=== PATIENT | female | born 1995 | race Caucasian/White ===

== ENCOUNTER 2017-11-20 17:00 | Emergency (ER) | payer SELFPAY ==
[2017-11-20] MEDS ORDERED: Sodium Chloride 0.9% 1,000 ML IV ONE (17:18)
[2017-11-20 17:52] LABS: CHLORIDE,CL 101 mmol/L (101-111); SODIUM,NA 137 mmol/L (135-145)
[2017-11-20] MEDS ORDERED: Ondansetron 4 MG/2 ML SDV IV ONE (18:04)
[2017-11-20] MEDS ORDERED: Iopamidol 612 MG/ML 75 ML Bottle IVPUSH ONE (18:27)
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
[2017-11-20] MEDS ORDERED: Ketorolac 30 MG/ML SDV IVPUSH ONE (19:26)
[2017-11-20 19:45] VITALS: BP 101/53
== END 2017-11-20 19:50 | disposition home or self-care (01) ==
LOC: DL.ED 17:00
DX: K52.9 Noninfective gastroenteritis and colitis, unspecified (principal)
CPT/HCPCS: 36415; 74177; 80053; 80305; 81001; 81025; 85025; 87081; 87430; 87804; 96361; 96374; 96375; 99284; J1885; J2405; J7030; Q9967

== ENCOUNTER 2019-08-08 20:26 | Emergency (ER) | payer BC, OTHER ==
[2019-08-08 20:49] VITALS: BP 114/59; PULSE 100
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
== END 2019-08-08 22:35 ==
LOC: DL.ED 20:26
DX: R25.2 Cramp and spasm (principal)
CPT/HCPCS: 36415; 73590-LT; 85027; 85379; 99283-25

== ENCOUNTER 2023-05-06 23:42 | Inpatient (IN) | payer OTHER ==
[2023-05-07] MEDS ORDERED: Lactated Ringers 1,000 ML IV ONE (00:16)
[2023-05-07] MEDS ORDERED: Lidocaine 1% 30 ML SDV INJECT PRN (00:16)
[2023-05-07] MEDS ORDERED: Misoprostol 400 MCG (4 X 100 MCG TAB) RECTAL PRN (00:16)
[2023-05-07] MEDS ORDERED: Acetaminophen 325 MG Tab PO PRN (00:16)
[2023-05-07] MEDS ORDERED: Carboprost Tromethamine 250 MCG/1 ML Amp IM PRN (00:16)
[2023-05-07] MEDS ORDERED: Methylergonovine 0.2 MG/1 ML Amp IM PRN (00:16)
[2023-05-07] MEDS ORDERED: Sodium Chloride 0.9% 10 ML Syringe FLUSH PRN (00:16)
[2023-05-07] MEDS ORDERED: Tranexamic Acid 1,000 MG in Sodium Chloride 0.9% 100 ML IV PRN (00:16)
[2023-05-07] MEDS: Lactated Ringers 1,000 ML IV SCH ×3 (00:20→03:44)
[2023-05-07] MEDS ORDERED: Oxytocin/Normal Saline 30 UNIT/500 ML BAG IV SCH (00:30)
[2023-05-07 00:36] LABS: HEMATOCRIT 35.9 % (37.0-47.0); HEMOGLOBIN 12.3 g/dL (12.0-16.0); MEAN CORPUSCULAR HEMOGLOBIN 29.1 pg (27.0-34.0); MEAN CORPUSCULAR HGB CONC 34.3 g/dL (33.0-35.0); MEAN CORPUSCULAR VOLUME 85.1 fL (80-100); RED BLOOD CELL COUNT 4.22 10^6/uL (4.2-5.4); WHITE BLOOD CELL COUNT,WBC 14.7 10^3/uL (5.0-10.0)
[2023-05-07] MEDS: Ondansetron 4 MG/2 ML SDV IVPUSH PRN ×2 (00:48→04:08)
[2023-05-07] MEDS: Ropivacaine 200 MG in Premix Bag 1 BAG EPIDUR SCH ×2 (01:29→07:00)
[2023-05-07] MEDS ORDERED: ePHEDrine 50 MG/ML SDV IVPUSH PRN (02:03)
[2023-05-07] MEDS ORDERED: Phenylephrine HCl In 0.9% NaCl 1 MG/10 ML Syringe IVPUSH PRN (02:03)
[2023-05-07] MEDS ORDERED: fentaNYL 100 MCG/2 ML SDV ONE (05:03)
[2023-05-07] MEDS ORDERED: Simethicone 80 MG Tab.Chew PO PRN (08:49)
[2023-05-07] MEDS ORDERED: Witch Hazel Medicated Pads 100/Jar TOP PRN (08:49)
[2023-05-07] MEDS ORDERED: Benzocaine/Menthol 20%-0.5% Spray 78 GM Cannister TOP PRN (08:49)
[2023-05-07] MEDS: Docusate Sodium 100 MG Cap PO PRN ×2 (11:34→22:15)
[2023-05-07] MEDS: Ibuprofen 800 MG Tab PO PRN ×2 (11:34→22:15)
[2023-05-07] MEDS: Acetaminophen 325 MG Tab PO PRN (19:25)
[2023-05-08 09:26] LABS: HEMATOCRIT 29.8 % (37.0-47.0); HEMOGLOBIN 9.8 g/dL (12.0-16.0); MEAN CORPUSCULAR HEMOGLOBIN 29.1 pg (27.0-34.0); MEAN CORPUSCULAR HGB CONC 32.9 g/dL (33.0-35.0); MEAN CORPUSCULAR VOLUME 88.4 fL (80-100); RED BLOOD CELL COUNT 3.37 10^6/uL (4.2-5.4); WHITE BLOOD CELL COUNT,WBC 11.5 10^3/uL (5.0-10.0)
[2023-05-08] MEDS: Acetaminophen 325 MG Tab PO PRN (09:29)
[2023-05-08] MEDS: Ibuprofen 800 MG Tab PO PRN ×2 (09:31→23:22)
[2023-05-08] MEDS: Docusate Sodium 100 MG Cap PO PRN ×2 (09:31→23:23)
[2023-05-08] MEDS: Prenatal Multivitamin with Calcium/Folic Acid/Iron Tab PO SCH (09:31)
[2023-05-08 20:59] VITALS: PULSE 89
[2023-05-09] MEDS: Docusate Sodium 100 MG Cap PO PRN (07:54)
[2023-05-09] MEDS: Prenatal Multivitamin with Calcium/Folic Acid/Iron Tab PO SCH ×2 (07:54→10:35)
[2023-05-09] MEDS: Ibuprofen 800 MG Tab PO PRN (07:56)
[2023-05-09] MEDS ORDERED: Ferrous Sulfate 325 MG Tab PO SCH (08:00)
[2023-05-09 10:27] VITALS: BP 102/62
[2023-05-09] MEDS ORDERED: fentaNYL 100 MCG/2 ML SDV EPIDUR ONE (12:59)
== END 2023-05-09 13:00 | disposition home or self-care (01) | DRG 806 ==
LOC: DL.OBCHECK 23:42 → DL.OB 05-07 00:23 → OBSVTOIN 05-07 08:11 → DL.OB 05-07 08:11
PROVIDERS: ADMIT Family Medicine; ATTEND Family Medicine
PROC: 10E0XZZ Delivery of Products of Conception, External Approach (ICD-10-PCS; principal; 2023-05-07)
PROC: 0KQM0ZZ Repair Perineum Muscle, Open Approach (ICD-10-PCS; 2023-05-07)
PROC: 10907ZC Drainage of Amniotic Fluid, Therapeutic from Products of Conception, Via Natural or Artificial Opening (ICD-10-PCS; 2023-05-07)
PROC: 3E033VJ Introduction of Other Hormone into Peripheral Vein, Percutaneous Approach (ICD-10-PCS; 2023-05-07)
PROC: 3E0R3BZ Introduction of Anesthetic Agent into Spinal Canal, Percutaneous Approach (ICD-10-PCS; 2023-05-07)
PROC: 00HU33Z Insertion of Infusion Device into Spinal Canal, Percutaneous Approach (ICD-10-PCS; 2023-05-07)
DX: O70.1 Second degree perineal laceration during delivery (principal); D62 Acute posthemorrhagic anemia; Z37.0 Single live birth; O99.03 Anemia complicating the puerperium; O77.0 Labor and delivery complicated by meconium in amniotic fluid; Z3A.39 39 weeks gestation of pregnancy
CPT/HCPCS: 01960; 36415; 51701; 59409; 85027; A9270-GY; J2405; J2590; J2795; J3010; J7120